=== PATIENT | male | born 2000 | race Hispanic/Latino ===

== ENCOUNTER 2023-02-21 17:39 | Inpatient (IN) | payer OTHER ==
[~2023-02-21] VITALS: Ht 144.8 cm; Wt 56.2 kg
[2023-02-21] MEDS ORDERED: SODIUM CHLORIDE 0.9% 1000ML 1,000 ML IV ONE (18:45)
[2023-02-21 19:14] LABS: BASOPHILS % 0.4 % (0.0-1.0); EOSINOPHILS % 0.2 % (0.0-6.0); HEMATOCRIT 46.5 % (38.2-49.6); HEMOGLOBIN 15.4 g/dL (14.0-18.0); LYMPHOCYTES # (AUTO) 2.3 (1.0-3.2); LYMPHOCYTES % 45.4 % (18.0-39.1); MEAN CORPUSCULAR HEMOGLOBIN 30.4 pg (28-32); MEAN CORPUSCULAR HGB CONC 33.1 g/dL (31-35); MEAN CORPUSCULAR VOLUME 91.7 fL (81-99); MONOCYTES # (AUTO) 0.3 (0.2-0.8); MONOCYTES % 6.4 % (4.4-11.3); NEUTROPHILS # (AUTO) 2.4 (2.1-6.9); NEUTROPHILS % 47.4 % (38.7-80.0); PLATELET COUNT 245 x10e3/uL (140-360); RED BLOOD COUNT 5.07 x10e6/uL (4.3-5.7)
[2023-02-21 19:34] LABS: ALBUMIN 3.5 g/dL (3.5-5.0); ALBUMIN/GLOBULIN RATIO 0.8 (0.8-2.0); ANION GAP 15.4 mmol/L (8-16); CREATININE, SERUM 0.6 mg/dL (0.72-1.25); POTASSIUM 4.4 mmol/L (3.5-5.1)
[2023-02-21] MEDS ORDERED: ONDANSETRON HCL INJ 2MG/ML 2ML 2 MG/ML VIAL IV PRN (20:15)
[2023-02-21] MEDS: DIPHENHYDRAMINE HCL INJ 50 MG/ML VIAL IV SCH (22:14)
[2023-02-21] MEDS: Vancomycin IV 1 GM in SODIUM CHLORIDE 0.9% 250ML 250 ML IV SCH (22:15)
[2023-02-21 23:50] VITALS: BP 107/71
[2023-02-22] VITALS (7 sets, daily range): BP systolic 100–108; BP diastolic 69–71
[2023-02-22] MEDS: SODIUM CHLORIDE 0.9% 1000ML 1,000 ML IV SCH ×2 (00:52→09:28)
[2023-02-22] MEDS ORDERED: VENTOLIN HFA18 GM IH (05:32)
[2023-02-22] MEDS ORDERED: MONTELUKAST SOD10 MG GT (05:32)
[2023-02-22] MEDS ORDERED: PHENOBARBI20 MG/5 ML GT (05:32)
[2023-02-22] MEDS ORDERED: CETIRIZINE1 MG/1 ML GT (05:32)
[2023-02-22] MEDS ORDERED: CLOBAZAM2.5 MG/1 M GT (05:32)
[2023-02-22] MEDS ORDERED: ZONISAMIDE100 MG GT (05:32)
[2023-02-22] MEDS ORDERED: LEVETIRACETAM GT (05:32)
[2023-02-22] MEDS ORDERED: ADVAIR HFA 115-12 GM INH (05:32)
[2023-02-22 06:43] LABS: BASOPHILS % 0.5 % (0.0-1.0); HEMATOCRIT 39.3 % (38.2-49.6); HEMOGLOBIN 12.9 g/dL (14.0-18.0); LYMPHOCYTES # (AUTO) 1.6 (1.0-3.2); LYMPHOCYTES % 27.1 % (18.0-39.1); MEAN CORPUSCULAR HEMOGLOBIN 30.1 pg (28-32); MEAN CORPUSCULAR HGB CONC 32.8 g/dL (31-35); MEAN CORPUSCULAR VOLUME 91.6 fL (81-99); MONOCYTES # (AUTO) 0.6 (0.2-0.8); MONOCYTES % 10.5 % (4.4-11.3); NEUTROPHILS # (AUTO) 3.5 (2.1-6.9); NEUTROPHILS % 61.5 % (38.7-80.0); PLATELET COUNT 218 x10e3/uL (140-360); RED BLOOD COUNT 4.29 x10e6/uL (4.3-5.7); RED CELL DISTRIBUTION WIDTH 13.1 % (11.7-14.4)
[2023-02-22 06:48] LABS: ALBUMIN 3.1 g/dL (3.5-5.0); ALBUMIN/GLOBULIN RATIO 0.9 (0.8-2.0); ANION GAP 10.7 mmol/L (8-16); CALCIUM 8.4 mg/dL (8.4-10.2); CREATININE, SERUM 0.51 mg/dL (0.72-1.25); POTASSIUM 3.7 mmol/L (3.5-5.1)
[2023-02-22] MEDS ORDERED: EPIDIOLEX100 MG/1 M (09:38)
[2023-02-22] MEDS: DIPHENHYDRAMINE HCL INJ 50 MG/ML VIAL IV SCH (19:55)
[2023-02-22] MEDS: Vancomycin IV 1 GM in SODIUM CHLORIDE 0.9% 250ML 250 ML IV SCH (19:57)
[2023-02-23] VITALS (8 sets, daily range): BP systolic 103–119; BP diastolic 53–82
[2023-02-23] MEDS: PHENOBARBITAL PEG SCH (16:24)
[2023-02-23] MEDS: LEVETIRACETAM ORAL SOLUTION 500 MG/5 ML SOLN PEG SCH (17:00)
[2023-02-23] MEDS: ZONISAMIDE 50 MG CAP GT SCH (17:36)
[2023-02-23] MEDS: DIPHENHYDRAMINE HCL INJ 50 MG/ML VIAL IV SCH (18:29)
[2023-02-23] MEDS: Vancomycin IV 1 GM in SODIUM CHLORIDE 0.9% 250ML 250 ML IV SCH (18:41)
[2023-02-23] MEDS: MONTELUKAST SODIUM 10 MG TAB PEG SCH (20:58)
[2023-02-23] MEDS: CLOBAZAM PEG SCH (21:00)
[2023-02-24] VITALS (8 sets, daily range): BP systolic 92–120; BP diastolic 66–83
[2023-02-24 04:14] LABS: ANION GAP 13.6 mmol/L (8-16); CALCIUM 8.9 mg/dL (8.4-10.2); CREATININE, SERUM 0.55 mg/dL (0.72-1.25); POTASSIUM 3.6 mmol/L (3.5-5.1)
[2023-02-24] MEDS: FLUTICASONE/SALMETEROL 115/21 12 GM AERO IH SCH ×2 (07:00→19:25)
[2023-02-24] MEDS: ALBUTEROL SULFATE HFA 8GM INHALATION AEROSOL INH SCH ×2 (07:00→19:25)
[2023-02-24] MEDS: PHENOBARBITAL PEG SCH ×2 (09:00→17:00)
[2023-02-24] MEDS: LORATADINE 10 MG TAB GT SCH (09:00)
[2023-02-24] MEDS: LEVETIRACETAM ORAL SOLUTION 500 MG/5 ML SOLN PEG SCH ×2 (09:00→17:00)
[2023-02-24] MEDS: ZONISAMIDE 50 MG CAP GT SCH ×2 (09:00→17:00)
[2023-02-24] MEDS: DIPHENHYDRAMINE HCL INJ 50 MG/ML VIAL IV SCH (18:37)
[2023-02-24] MEDS: Vancomycin IV 1 GM in SODIUM CHLORIDE 0.9% 250ML 250 ML IV SCH (18:46)
[2023-02-24] MEDS: MONTELUKAST SODIUM 10 MG TAB PEG SCH (21:00)
[2023-02-24] MEDS: CLOBAZAM PEG SCH (21:00)
[2023-02-25] VITALS (10 sets, daily range): BP systolic 94–112; BP diastolic 57–73
[2023-02-25] MEDS: FLUTICASONE/SALMETEROL 115/21 12 GM AERO IH SCH ×2 (08:05→20:45)
[2023-02-25] MEDS: ALBUTEROL SULFATE HFA 8GM INHALATION AEROSOL INH SCH ×2 (08:05→20:45)
[2023-02-25] MEDS: LORATADINE 10 MG TAB GT SCH (09:00)
[2023-02-25] MEDS: LEVETIRACETAM ORAL SOLUTION 500 MG/5 ML SOLN PEG SCH ×2 (09:00→17:00)
[2023-02-25] MEDS: ZONISAMIDE 50 MG CAP GT SCH ×2 (09:00→17:00)
[2023-02-25] MEDS: PHENOBARBITAL PEG SCH ×2 (09:00→17:00)
[2023-02-25] MEDS ORDERED: SUGAMMADEX SODIUM 200 MG/2 ML VIAL IV ONE (11:58)
[2023-02-25] MEDS ORDERED: BUPIVACAINE HCL 0.5% INJ 30 ML VIAL INJ ONE (12:37)
[2023-02-25] MEDS ORDERED: ROCURONIUM BROMIDE 10 MG/ML 5ML VIAL IV ONE (12:42)
[2023-02-25] MEDS ORDERED: LIDOCAINE HCL 2% LOCAL INJ 5 ML SDV VIAL INJ ONE (12:42)
[2023-02-25] MEDS ORDERED: ONDANSETRON HCL INJ 2MG/ML 2ML 2 MG/ML VIAL ONE (12:42)
[2023-02-25] MEDS ORDERED: PROPOFOL IV EMULSION 10 MG/ML 20 ML VIAL ONE (12:42)
[2023-02-25] MEDS ORDERED: PHENYLEPHRINE HCL 1% 10 MG/ML VIAL ONE (12:42)
[2023-02-25] MEDS ORDERED: POVIDONE IODINE 0.05% 0.05 % ML PO ONE (12:42)
[2023-02-25] MEDS ORDERED: SEVOFLURANE INHAL SOLN 250 ML PEN BTL ONE (12:42)
[2023-02-25] MEDS ORDERED: DEXAMETHASONE SOD PHOS INJ 4 MG/ML SDV ONE (12:42)
[2023-02-25] MEDS ORDERED: FENTANYL CITRATE/PF 100MCG/2 ML INJ ONE (13:25)
[2023-02-25] MEDS ORDERED: MIDAZOLAM HCL 2 MG/2 ML VIAL ONE (13:25)
[2023-02-25] MEDS: DIPHENHYDRAMINE HCL INJ 50 MG/ML VIAL IV SCH (17:58)
[2023-02-25] MEDS: Vancomycin IV 1 GM in SODIUM CHLORIDE 0.9% 250ML 250 ML IV SCH (18:19)
[2023-02-25] MEDS: CLOBAZAM PEG SCH (21:00)
[2023-02-25] MEDS: MONTELUKAST SODIUM 10 MG TAB PEG SCH (21:00)
[2023-02-26] VITALS (7 sets, daily range): BP systolic 94–135; BP diastolic 63–89
[2023-02-26 06:40] LABS: BASOPHILS % 0.2 % (0.0-1.0); HEMATOCRIT 41.9 % (38.2-49.6); HEMOGLOBIN 14.1 g/dL (14.0-18.0); LYMPHOCYTES # (AUTO) 2.2 (1.0-3.2); LYMPHOCYTES % 26.7 % (18.0-39.1); MEAN CORPUSCULAR HEMOGLOBIN 30.5 pg (28-32); MEAN CORPUSCULAR HGB CONC 33.7 g/dL (31-35); MEAN CORPUSCULAR VOLUME 90.7 fL (81-99); MONOCYTES # (AUTO) 0.8 (0.2-0.8); MONOCYTES % 9.3 % (4.4-11.3); NEUTROPHILS # (AUTO) 5.1 (2.1-6.9); NEUTROPHILS % 63.6 % (38.7-80.0); PLATELET COUNT 224 x10e3/uL (140-360); RED BLOOD COUNT 4.62 x10e6/uL (4.3-5.7); RED CELL DISTRIBUTION WIDTH 12.9 % (11.7-14.4)
[2023-02-26 07:08] LABS: ALBUMIN 3.4 g/dL (3.5-5.0); ALBUMIN/GLOBULIN RATIO 0.9 (0.8-2.0); ANION GAP 13.6 mmol/L (8-16); CREATININE, SERUM 0.53 mg/dL (0.72-1.25); PHOSPHORUS 3.1 MG/DL (2.3-4.7); POTASSIUM 3.6 mmol/L (3.5-5.1)
[2023-02-26] MEDS: ZONISAMIDE 50 MG CAP GT SCH ×2 (09:00→18:19)
[2023-02-26] MEDS: LEVETIRACETAM ORAL SOLUTION 500 MG/5 ML SOLN PEG SCH ×2 (09:00→17:00)
[2023-02-26] MEDS: LORATADINE 10 MG TAB GT SCH (10:45)
[2023-02-26] MEDS: FLUTICASONE/SALMETEROL 115/21 12 GM AERO IH SCH ×2 (11:23→19:30)
[2023-02-26] MEDS: ALBUTEROL SULFATE HFA 8GM INHALATION AEROSOL INH SCH ×2 (11:24→19:30)
[2023-02-26] MEDS: PHENOBARBITAL PEG SCH ×2 (15:18→18:20)
[2023-02-26] MEDS ORDERED: CEFTRIAXONE 2 GM in SODIUM CHLORIDE 0.9% 100 ML IV SCH (17:00)
[2023-02-26] MEDS: DIPHENHYDRAMINE HCL INJ 50 MG/ML VIAL IV SCH (17:37)
[2023-02-26] MEDS ORDERED: LORAZEPAM INJ 2 MG/ML VIAL IV PRN (20:45)
[2023-02-26] MEDS: MONTELUKAST SODIUM 10 MG TAB PEG SCH (20:58)
[2023-02-26] MEDS ORDERED: NYSTATIN/TRIAMCINOLONE 15 GM CR TOP SCH (21:00)
[2023-02-26] MEDS: CHOLESTYRAMINE 4 GM PACKET PO SCH (22:31)
[2023-02-26] MEDS: CLOBAZAM PEG SCH (22:33)
[2023-02-26] MEDS: NYSTATIN/TRIAMCINOLONE 15 GM CR TOP SCH (22:34)
[2023-02-27 00:29] VITALS: BP 98/68
[2023-02-27 05:45] VITALS: BP 108/73
[2023-02-27 06:32] LABS: BASOPHILS % 0.2 % (0.0-1.0); HEMATOCRIT 45.5 % (38.2-49.6); HEMOGLOBIN 14.5 g/dL (14.0-18.0); LYMPHOCYTES # (AUTO) 1.5 (1.0-3.2); MEAN CORPUSCULAR HEMOGLOBIN 30.1 pg (28-32); MEAN CORPUSCULAR HGB CONC 31.9 g/dL (31-35); MEAN CORPUSCULAR VOLUME 94.4 fL (81-99); MONOCYTES # (AUTO) 0.5 (0.2-0.8); MONOCYTES % 8.2 % (4.4-11.3); NEUTROPHILS # (AUTO) 3.5 (2.1-6.9); NEUTROPHILS % 63.4 % (38.7-80.0); PLATELET COUNT 224 x10e3/uL (140-360); RED BLOOD COUNT 4.82 x10e6/uL (4.3-5.7); RED CELL DISTRIBUTION WIDTH 12.9 % (11.7-14.4)
[2023-02-27] MEDS: FLUTICASONE/SALMETEROL 115/21 12 GM AERO IH SCH (06:48)
[2023-02-27 07:11] LABS: ANION GAP 15.3 mmol/L (8-16); CALCIUM 9.4 mg/dL (8.4-10.2); CREATININE, SERUM 0.54 mg/dL (0.72-1.25); POTASSIUM 4.3 mmol/L (3.5-5.1)
[2023-02-27 07:47] VITALS: BP 96/72
[2023-02-27 08:23] VITALS: BP 96/72
[2023-02-27] MEDS: NYSTATIN/TRIAMCINOLONE 15 GM CR TOP SCH (08:49)
[2023-02-27] MEDS: CHOLESTYRAMINE 4 GM PACKET PO SCH (08:49)
[2023-02-27] MEDS: LORATADINE 10 MG TAB GT SCH (08:53)
[2023-02-27] MEDS: LEVETIRACETAM ORAL SOLUTION 500 MG/5 ML SOLN PEG SCH (08:56)
[2023-02-27] MEDS: ZONISAMIDE 50 MG CAP GT SCH (08:56)
[2023-02-27] MEDS: PHENOBARBITAL PEG SCH (08:57)
[2023-02-27] MEDS ORDERED: MUPIROCIN 2% OINT 22 GM TUBE TOP SCH ×2 (09:00→11:45)
[2023-02-27] MEDS ORDERED: CHOLESTYRAMINE L4 GM PO (11:05)
[2023-02-27 11:56] VITALS: BP 94/57
[2023-02-27] MEDS ORDERED: ONDANSETRON HCL 4 MG ORAL DISINTEGRATING TAB PO PRN (13:15)
[2023-02-28] MEDS ORDERED: MUPIROCIN 2% OINT 22 GM TUBE TOP SCH (09:00)
== END 2023-02-27 14:31 | disposition home health service (06) | DRG 464 ==
LOC: ER 17:47 → ERHOLD 20:08 → MED/SURG2 23:50
PROVIDERS: ADMIT Internal Medicine; ATTEND Internal Medicine
PROC: 0QBM0ZX Excision of Left Tarsal, Open Approach, Diagnostic (ICD-10-PCS; 2023-02-25)
PROC: 0JBR0ZZ Excision of Left Foot Subcutaneous Tissue and Fascia, Open Approach (ICD-10-PCS; principal; 2023-02-25 12:14)
DX: M86.8X7 Other osteomyelitis, ankle and foot (principal); Z43.1 Encounter for attention to gastrostomy; Z79.4 Long term (current) use of insulin; Z20.822 Contact with and (suspected) exposure to COVID-19; G80.9 Cerebral palsy, unspecified; Q02 Microcephaly; Z74.01 Bed confinement status; G40.909 Epilepsy, unspecified, not intractable, without status epilepticus; H54.8 Legal blindness, as defined in USA; S91.002A Unspecified open wound, left ankle, initial encounter
CPT/HCPCS: 0223U; 36415; 36569; 71045; 76000; 80048; 80053; 80202; 83605; 83735; 84100; 85025; 87040; 87071; 87075; 87205; 88304; 88305; 88311; 94664; 94799; 99252; 99284; J0692; J0696; J1100; J1200; J2001; J2250; J2370; J2405; J7030; J7050